=== PATIENT | female | born 1980 | race Caucasian/White ===

== ENCOUNTER 2020-02-12 00:29 | Emergency (ER) | payer OTHER ==
[~2020-02-12] VITALS: Ht 160 cm; Wt 56.7 kg
[~2020-02-12 00:29] MED LIST: Z.0.WELLBUTRIN SR150
[2020-02-12] MEDS ORDERED: TRAMADOL HCL 50 MG TAB PO ONE (00:45)
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
--- NOTE | 2020-02-12 01:14 | NUR ---
[employer] AT BEDSIDE FOR PORTABLE XRAY.
--- NOTE | 2020-02-12 02:00 | Diagnostic Imaging Report ---
X-ray RIGHT ANKLE 3 VIEWS X-ray RIGHT FOOT 3 VIEWS HISTORY: Pain. Trauma COMPARISON: None available. FINDINGS: Bones: No acute displaced fracture. Osseous alignment is within normal limits. Joints: The joint spaces are well-maintained. Soft tissues: Soft tissue swelling at the lateral malleolus. IMPRESSION: Soft tissue swelling at the lateral malleolus. No acute fracture or dislocation. Signed by: René Garcia MD on 02/12/2020 1:57 AM
== END 2020-02-12 02:30 | disposition home or self-care (01) ==
LOC: ER 01:56
DX: S93.401A Sprain of unspecified ligament of right ankle, initial encounter (principal); S90.811A Abrasion, right foot, initial encounter; S90.31XA Contusion of right foot, initial encounter; V09.09XA Pedestrian injured in nontraffic accident involving other motor vehicles, initial encounter; Y92.89 Other specified places as the place of occurrence of the external cause
CPT/HCPCS: 99283